=== PATIENT | male | born 1960 | race Caucasian/White ===

== ENCOUNTER → 2017-08-06 | Outpatient (CLI) | payer OTHER ==
--- NOTE | 2017-08-06 12:54 | KCIC ---
MRI of the lumbar spine without contrast 08/06/2017 CLINICAL HISTORY: Acute on chronic low back pain. TECHNIQUE: Unenhanced T1-weighted and T2-weighted sagittal and axial and inversion recovery sagittal images of the lumbar spine were obtained. FINDINGS: Comparison is made to radiographs of the lumbar spine dated 07/01/2017. Minimal S-shaped curvature of the thoracolumbar spine is seen. L5 is sacralized. A hypoplastic disc is seen at L5-S1. Degenerative signal changes and loss of height are seen involving the L2-3, L3-4 and L4-5 discs. Degenerative signal changes are seen within the marrow surrounding these discs. The conus medullaris is normal morphology, position, and signal characteristics. At the L1-2 disc space there is a mild to moderate generalized disc bulge. Degenerative changes are seen involving the facet joints bilaterally. There is mild ligamentum flavum hypertrophy bilaterally. These findings do not result in significant central spinal canal or neural foraminal stenosis. At the L2-3 disc space there is a mild to moderate generalized disc bulge. Degenerative changes are seen involving the facet joints bilaterally. There is moderate ligamentum flavum hypertrophy bilaterally. There is prominence of the posterior epidural fat. Small facet joint effusions are seen. These findings when combined result in mild to moderate central spinal canal stenosis. Mild bilateral neural foraminal stenosis is seen. At the L3-4 disc space there is a mild to moderate generalized disc bulge. This is eccentric to the right. Degenerative changes are seen involving the facet joints bilaterally. There is moderate ligamentum flavum hypertrophy bilaterally. Small facet joint effusions are seen. There is prominence of the posterior epidural fat. These findings when combined result in mild central spinal canal stenosis. Mild to moderate right greater than left neural foraminal stenosis is seen. At the L4-5 disc space there is a mild to moderate generalized disc bulge. This is eccentric to the left. Degenerative changes are seen involving the facet joints bilaterally. There is mild ligamentum flavum hypertrophy bilaterally. These findings when combined do not result in significant central spinal canal stenosis. Mild left greater than right neural foraminal stenosis is seen. At the L5-S1 disc space there is a minimal generalized disc bulge. Mild degenerative changes are seen involving the facet joints bilaterally. These findings do not result in significant central spinal canal or neural foraminal stenosis. IMPRESSION: The changes of degenerative disc disease are seen throughout the lumbar spine. These findings result in mild to moderate central spinal canal stenosis at L2-3 and mild central spinal canal stenosis at L3-4. Mild bilateral neural foraminal stenosis is seen at L2-3. Mild to moderate right greater than left neural foraminal stenosis is seen at L3-4. Mild left greater than right neural foraminal stenosis is seen at L4-5. Electronically signed by: Ciaran Torres MD (08/06/2017 12:51 PM) [id number]
== END | disposition home or self-care (01) ==
LOC: KCIC MRI 09:01
PROVIDERS: ATTEND Family Medicine
DX: M48.061 Spinal stenosis, lumbar region without neurogenic claudication (principal); M51.36 Other intervertebral disc degeneration, lumbar region
CPT/HCPCS: 72148